=== PATIENT | female | born 1940 | race Asian ===

== ENCOUNTER 2018-03-19 08:04 | Observation (INO) | payer MEDICARE, MEDICAID ==
[~2018-03-19] VITALS: Ht 149.9 cm; Wt 59.2 kg
[2018-03-19 08:36] LABS: BASOPHILS # (AUTO) 0.02 x10^3/uL (0-0.1); BASOPHILS % (AUTO) 1 % (0-1); EOSINOPHILS # (AUTO) 0.15 x10^3/uL (0-0.4); EOSINOPHILS % (AUTO) 3 % (1-7); LYMPHOCYTES # (AUTO) 0.87 x10^3/uL (1-3.4); LYMPHOCYTES % (AUTO) 18 % (22-44); MD NO; MEAN CORPUSCULAR HEMOGLOBIN 29.5 pg (27.0-34.8); MEAN CORPUSCULAR HGB CONC 32.9 g/dL (32.4-35.8); MEAN CORPUSCULAR VOLUME 89.7 fL (80-100); MONOCYTES # (AUTO) 0.61 x10^3/uL (0.2-0.8); MONOCYTES % (AUTO) 13 % (2-9); NEUTROPHILS # (AUTO) 3.15 x10^3/uL (1.8-6.8); NEUTROPHILS % (AUTO) 66 % (42-75); PLATELET COUNT 187 x10^3/uL (130-400); RED BLOOD COUNT 4.64 x10^6/uL (3.82-5.3); RED CELL DISTRIBUTION WIDTH 15.4 % (9.6-15.2)
[2018-03-19 08:47] LABS: ALANINE AMINOTRANSFERASE 19 U/L (12-78); ALBUMIN 3.7 g/dL (3.4-5.0); ANION GAP 7 mmol/L (5-15); CALCIUM 8.7 mg/dL (8.5-10.1); CHLORIDE 110 mmol/L (98-107); CREATININE 0.96 mg/dL (0.55-1.02)
[2018-03-19 08:52] LABS: ALKALINE PHOSPHATASE 77 U/L (45-117); BILIRUBIN,TOTAL 0.4 mg/dL (0.2-1.0); TOTAL PROTEIN 7.2 g/dL (6.4-8.2); TROPONIN I < 0.015 ng/mL (0.000-0.045)
[2018-03-19] MEDS ORDERED: CEFTRIAXONE PMX 1GM/50ML 50 ML IVPB ONE (09:00)
[2018-03-19] MEDS ORDERED: AZITHROMYCIN 500 MG in SODIUM CHLORIDE 0.9% 250 ML IVPB ONE (09:00)
[2018-03-19] MEDS ORDERED: SODIUM CHLORIDE FLUSH 10ML SYR IVF PRN (09:30)
[2018-03-19] MEDS ORDERED: hydrALAzine 20 MG/ML, 1ML ONE (09:38)
[2018-03-19] MEDS ORDERED: CEFTRIAXONE PMX 1GM/50ML 50 ML ONE (09:38)
[2018-03-19] MEDS ORDERED: ONDANSETRON ODT 4 MG PO PRN (10:00)
[2018-03-19] MEDS ORDERED: BENZONATATE 100 MG CAPSULE PO PRN (10:00)
[2018-03-19] MEDS ORDERED: ACETAMINOPHEN 325 MG TABLET PO PRN (10:00)
[2018-03-19] MEDS ORDERED: hydrALAzine 20 MG/ML, 1ML IV ONE (10:00)
[2018-03-19] MEDS ORDERED: hydrALAzine 20 MG/ML, 1ML IV PRN (10:30)
[2018-03-19 10:45] VITALS: BP 182/72
[2018-03-19] MEDS ORDERED: CALC-192 PO (10:52)
[2018-03-19] MEDS ORDERED: MAGN400T36 PO (10:52)
[2018-03-19] MEDS ORDERED: FLUT1AER IH (10:52)
[2018-03-19] MEDS ORDERED: methylPREDNISolone 4mg DOSE PACK PO ONE (11:00)
[2018-03-19] MEDS ORDERED: HYDRALAZINE MC SCH (11:00)
[2018-03-19] MEDS: ENOXAPARIN 40 MG/0.4 ML SQ SCH (12:02)
[2018-03-19] MEDS: GUAIFENESIN ER 600 MG TABLET PO SCH ×2 (12:02→20:46)
[2018-03-19] MEDS: DOXYCYCLINE 100 MG in DEXTROSE 5% 250 ML IV SCH ×2 (12:02→22:22)
[2018-03-19] MEDS: SODIUM CHLORIDE 0.9% 1,000 ML IV SCH (12:03)
[2018-03-19 15:55] VITALS: BP 183/89
[2018-03-19] MEDS: hydrALAzine 20 MG/ML, 1ML IV PRN ×2 (16:09→20:45)
[2018-03-19 16:40] LABS: RAPID INFLUENZA A Negative (Negative); RAPID INFLUENZA B Negative (Negative)
[2018-03-19 17:30] VITALS: BP 165/81
[2018-03-19 20:20] VITALS: BP 185/81
[2018-03-19 23:47] VITALS: BP 164/78
[2018-03-20 03:10] VITALS: BP 163/75
[2018-03-20] MEDS: GUAIFENESIN/DM 200-20MG, 10ML UDC PO PRN ×2 (03:18→14:21)
[2018-03-20] MEDS: SODIUM CHLORIDE 0.9% 1,000 ML IV SCH (03:18)
[2018-03-20 04:45] LABS: BASOPHILS # (AUTO) 0.02 x10^3/uL (0-0.1); BASOPHILS % (AUTO) 0 % (0-1); EOSINOPHILS % (AUTO) 0 % (1-7); LYMPHOCYTES # (AUTO) 1.19 x10^3/uL (1-3.4); LYMPHOCYTES % (AUTO) 20 % (22-44); MD NO; MEAN CORPUSCULAR HEMOGLOBIN 29.1 pg (27.0-34.8); MEAN CORPUSCULAR VOLUME 90.9 fL (80-100); MEAN PLATELET VOLUME 9.4 fL (7.4-10.4); MONOCYTES % (AUTO) 12 % (2-9); NEUTROPHILS # (AUTO) 3.96 x10^3/uL (1.8-6.8); NEUTROPHILS % (AUTO) 67 % (42-75); PLATELET COUNT 199 x10^3/uL (130-400); RED BLOOD COUNT 4.23 x10^6/uL (3.82-5.3); RED CELL DISTRIBUTION WIDTH 15.9 % (9.6-15.2)
[2018-03-20 04:50] LABS: ANION GAP 7 mmol/L (5-15); CALCIUM 8.7 mg/dL (8.5-10.1); CHLORIDE 111 mmol/L (98-107)
[2018-03-20 04:55] LABS: ALANINE AMINOTRANSFERASE 17 U/L (12-78); ALKALINE PHOSPHATASE 69 U/L (45-117); BILIRUBIN,TOTAL 0.2 mg/dL (0.2-1.0); CREATININE 0.73 mg/dL (0.55-1.02); TOTAL PROTEIN 6.1 g/dL (6.4-8.2)
[2018-03-20 06:56] VITALS: BP 184/83
[2018-03-20] MEDS: hydrALAzine 20 MG/ML, 1ML IV PRN (07:48)
[2018-03-20] MEDS: GUAIFENESIN ER 600 MG TABLET PO SCH (07:48)
[2018-03-20] MEDS ORDERED: LISINOPRIL 10 MG TABLET PO SCH (09:00)
[2018-03-20] MEDS: ENOXAPARIN 40 MG/0.4 ML SQ SCH (09:24)
[2018-03-20 09:25] VITALS: BP_SYST 156; BP_SYST 165; BP_DIAS 69
[2018-03-20 09:33] VITALS: BP 161/82
[2018-03-20] MEDS ORDERED: CEFTRIAXONE PMX 1GM/50ML 50 ML IV SCH (10:00)
[2018-03-20] MEDS: DOXYCYCLINE 100 MG in DEXTROSE 5% 250 ML IV SCH (11:17)
[2018-03-20 13:17] VITALS: BP 168/73
[2018-03-20] MEDS ORDERED: DOXY-228 PO (14:17)
[2018-03-20] MEDS ORDERED: LISI-167 PO (14:17)
[2018-03-20] MEDS ORDERED: METH4TAB2 PO (14:17)
[2018-03-20] MEDS ORDERED: CEFD300C37 PO (14:17)
[2018-03-20] MEDS ORDERED: ASPI81TA45 PO (15:21)
== END 2018-03-20 18:15 | disposition home or self-care (01) ==
LOC: ED 09:10 → INTOOBSV 09:30 → EDIP 09:30 → 3NW 10:32
PROVIDERS: ADMIT Hospitalist; ATTEND Hospitalist
DX: J15.9 Unspecified bacterial pneumonia (principal); R42 Dizziness and giddiness; J45.909 Unspecified asthma, uncomplicated; R06.00 Dyspnea, unspecified; I10 Essential (primary) hypertension; K44.9 Diaphragmatic hernia without obstruction or gangrene; Z82.49 Family history of ischemic heart disease and other diseases of the circulatory system; Z96.651 Presence of right artificial knee joint
CPT/HCPCS: 36415; 70450; 71045; 80053; 83605; 83880; 84145; 84443; 84484; 85025; 87040; 87400; 93005; 93306; 96361; 96365; 96366; 96367; 96372; 96375; 96376; 99284; G0378; J0360; J0456; J0696; J1650; J7030; J7050; J7060; J7509; 96368

== ENCOUNTER 2018-03-25 07:16 | Emergency (ER) | payer MEDICARE, MEDICAID ==
[~2018-03-25] VITALS: Ht 152.4 cm; Wt 58.6 kg
[~2018-03-25 07:16] MED LIST: ASPI81TA45 PO; CALC-192 PO; CEFD300C37 PO; DOXY-228 PO; FLUT1AER IH; LISI-167 PO; MAGN400T36 PO; METH4TAB2 PO
[2018-03-25] MEDS ORDERED: ALBUTEROL/IPRATROPIUM 2.5MG/0.5MG, 3 ML ONE (07:50)
--- NOTE | 2018-03-25 07:51 | NUR ---
PT PRESENTED TO ED WITH COUGH. PT WAS DIAGNOSED WITH PNEUMONIA A WEEK AGO AND STATES THAT SHE IS STILL NOT FEELING WELL. PT A&OX4. PT PLACED IN ROOM AND PLACED ON BP AND CONT. PULSE OXIMETER. ASSESSMENT COMPLETED. CALL LIGHT IN REACH. AWAITING MD.
[2018-03-25] MEDS ORDERED: ALBUTEROL/IPRATROPIUM 2.5MG/0.5MG, 3 ML NPPB ONE (08:00)
[2018-03-25] MEDS ORDERED: SODIUM CHLORIDE FLUSH 10ML SYR IVF ONE (08:00)
--- NOTE | 2018-03-25 08:10 | NUR ---
EKG DONE AND PRESENTED TO
[2018-03-25 08:25] LABS: BASOPHILS # (AUTO) 0.04 x10^3/uL (0-0.1); BASOPHILS % (AUTO) 1 % (0-1); EOSINOPHILS # (AUTO) 0.07 x10^3/uL (0-0.4); EOSINOPHILS % (AUTO) 1 % (1-7); LYMPHOCYTES # (AUTO) 1.27 x10^3/uL (1-3.4); LYMPHOCYTES % (AUTO) 20 % (22-44); MD NO; MEAN CORPUSCULAR HEMOGLOBIN 29.1 pg (27.0-34.8); MEAN CORPUSCULAR HGB CONC 32.1 g/dL (32.4-35.8); MEAN CORPUSCULAR VOLUME 90.8 fL (80-100); MEAN PLATELET VOLUME 8.5 fL (7.4-10.4); MONOCYTES # (AUTO) 0.62 x10^3/uL (0.2-0.8); MONOCYTES % (AUTO) 10 % (2-9); NEUTROPHILS # (AUTO) 4.39 x10^3/uL (1.8-6.8); NEUTROPHILS % (AUTO) 69 % (42-75); PLATELET COUNT 245 x10^3/uL (130-400); RED BLOOD COUNT 4.51 x10^6/uL (3.82-5.3); RED CELL DISTRIBUTION WIDTH 15.3 % (9.6-15.2)
[2018-03-25 08:35] LABS: ALBUMIN 3.5 g/dL (3.4-5.0); ANION GAP 6 mmol/L (5-15); CALCIUM 8.9 mg/dL (8.5-10.1); CHLORIDE 111 mmol/L (98-107); CREATININE 0.88 mg/dL (0.55-1.02); PROTHROMBIN TIME 10.6 Seconds (9.6-11.5)
[2018-03-25 08:39] LABS: TROPONIN I < 0.015 ng/mL (0.000-0.045)
--- NOTE | 2018-03-25 08:43 | NUR ---
MELL [phone] SON IN LAW
--- NOTE | 2018-03-25 08:44 | NUR ---
PT ASSISTED TO BR WITH SBA.
--- NOTE | 2018-03-25 09:39 | NUR ---
CALLED AND SPOKE WITH SON IN LAW AND PT WILL BE DISCHARGED. FAMILY MEMBER TO COME CLIPPING MARKER PATIENT
[2018-03-25 09:56] VITALS: BP 161/89
== END 2018-03-25 09:58 | disposition home or self-care (01) ==
LOC: ED 07:48
DX: J45.30 Mild persistent asthma, uncomplicated (principal); R06.00 Dyspnea, unspecified; I10 Essential (primary) hypertension
CPT/HCPCS: 36415; 71046; 80048; 82040; 83880; 84484; 85025; 85610; 85730; 87040; 93005; 99284

== ENCOUNTER 2018-05-10 21:43 | Inpatient (IN) | payer MEDICARE, MEDICAID ==
[~2018-05-10] VITALS: Ht 149.9 cm; Wt 58.9 kg
[2018-05-10] MEDS ORDERED: ASPIRIN 81 MG TABLET CHEW PO ONE (22:00)
[2018-05-10] MEDS ORDERED: ASPIRIN 81 MG TABLET CHEW ONE (22:12)
--- NOTE | 2018-05-10 22:45 | NUR ---
PT HERE FOR CHEST PAIN WITH DIAPHORISIS THAT STARTED THIS AFTERNOON. PT SAYS SHE HAS HAD SWEATS FOR APPROX 1 YEAR. PT HAS HX OF HTN. VSS. PT MEDICATED WITH ASPRIN. DAUGHTER AT BEDSIDE. CALL LIGHT IN REACH
[2018-05-10 22:46] LABS: BASOPHILS # (AUTO) 0.02 x10^3/uL (0-0.1); BASOPHILS % (AUTO) 0 % (0-1); EOSINOPHILS # (AUTO) 0.12 x10^3/uL (0-0.4); EOSINOPHILS % (AUTO) 2 % (1-7); LYMPHOCYTES # (AUTO) 1.34 x10^3/uL (1-3.4); LYMPHOCYTES % (AUTO) 23 % (22-44); MD NO; MEAN CORPUSCULAR HEMOGLOBIN 29.7 pg (27.0-34.8); MEAN CORPUSCULAR HGB CONC 32.5 g/dL (32.4-35.8); MEAN CORPUSCULAR VOLUME 91.2 fL (80-100); MEAN PLATELET VOLUME 8.6 fL (7.4-10.4); MONOCYTES # (AUTO) 0.51 x10^3/uL (0.2-0.8); MONOCYTES % (AUTO) 9 % (2-9); NEUTROPHILS % (AUTO) 66 % (42-75); PLATELET COUNT 241 x10^3/uL (130-400); RED BLOOD COUNT 4.03 x10^6/uL (3.82-5.3); RED CELL DISTRIBUTION WIDTH 14.9 % (9.6-15.2)
[2018-05-10 23:02] LABS: ALBUMIN 3.5 g/dL (3.4-5.0); ANION GAP 6 mmol/L (5-15); CALCIUM 8.8 mg/dL (8.5-10.1); CHLORIDE 113 mmol/L (98-107)
[2018-05-10 23:08] LABS: ALANINE AMINOTRANSFERASE 18 U/L (12-78); ALKALINE PHOSPHATASE 74 U/L (45-117); BILIRUBIN,TOTAL 0.3 mg/dL (0.2-1.0); CREATININE 1.05 mg/dL (0.55-1.02); TOTAL PROTEIN 6.5 g/dL (6.4-8.2); TROPONIN I < 0.015 ng/mL (0.000-0.045)
--- NOTE | 2018-05-10 23:45 | NUR ---
PT TO BE ADMITTED. TECH AT BEDSIDE TO PLACE PIV
--- NOTE | 2018-05-10 23:52 | NUR ---
REPORT TO IVA MARIE.
--- NOTE | 2018-05-10 23:55 | NUR ---
PT MOVED TO ROOM 16. REPORT RECEIVED FROM FRANK ORTIZ
--- NOTE | 2018-05-11 00:07 | NUR ---
PT PLACED ON HOSPITAL BED. VITALS STABLE. DAUGHTER AT BEDSIDE. CALL LIGHT WITHIN REACH.
--- NOTE | 2018-05-11 01:21 | NUR ---
PT AMBULATORY TO RESTROOM STEADY GAIT NOTED. C/O COUGH. DR. ESPAÑA AWARE.
[2018-05-11] MEDS ORDERED: BENZONATATE 100 MG CAPSULE ONE (01:25)
[2018-05-11] MEDS ORDERED: POLYETHYLENE GLYCOL 17 GM PACKET PO PRN (02:00)
[2018-05-11] MEDS ORDERED: PROMETHAZINE 25 MG/ML, 1ML IM PRN (02:00)
[2018-05-11] MEDS ORDERED: OXYcodone IR 5MG TABLET PO PRN (02:00)
[2018-05-11] MEDS ORDERED: DOCUSATE 100 MG CAPSULE PO PRN (02:00)
[2018-05-11] MEDS ORDERED: ACETAMINOPHEN 325 MG TABLET PO PRN (02:00)
[2018-05-11] MEDS ORDERED: hydrALAzine 20 MG/ML, 1ML IVPush PRN (02:00)
[2018-05-11] MEDS ORDERED: ONDANSETRON ODT 4 MG PO PRN (02:00)
[2018-05-11] MEDS ORDERED: ENALAPRILAT 1.25 MG/ML, 2ML IVPush PRN (02:00)
[2018-05-11] MEDS ORDERED: morphine SULFATE 10 MG/ML, 1ML IVPush PRN (02:00)
[2018-05-11] MEDS ORDERED: NITROGLYCERIN 0.4 MG BOTTLE (25 TABS) SL PRN (02:00)
[2018-05-11] MEDS ORDERED: ONDANSETRON 2MG/ML, 2ML IVPush PRN (02:00)
[2018-05-11] MEDS ORDERED: ALBUTEROL/IPRATROPIUM 2.5MG/0.5MG, 3 ML NPPB PRN (02:00)
[2018-05-11] MEDS ORDERED: BISACODYL 10 MG SUPP PR PRN (02:00)
[2018-05-11] MEDS ORDERED: PANTOPRAZOLE 40 MG IV ONE ×2 (02:39→05:58)
[2018-05-11] MEDS ORDERED: HEPARIN 5,000 UNITS/ML, 1ML ONE ×2 (02:39→05:57)
[2018-05-11 02:44] LABS: FREE T4 (FREE THYROXINE) 0.99 ng/dL (0.76-1.46); TROPONIN I < 0.015 ng/mL (0.000-0.045)
--- NOTE | 2018-05-11 02:58 | NUR ---
PT AMBULATORY TO RESTROOM WITH STEADY GAIT. BACK TO BED WITHOUT DIFFICULTY.
[2018-05-11 03:07] LABS: HEMOGLOBIN A1C 5.7 % (4.2-6.3)
--- NOTE | 2018-05-11 03:26 | NUR ---
REPORT TO FRANK MUSA
[2018-05-11 05:05] LABS: BASOPHILS # (AUTO) 0.03 x10^3/uL (0-0.1); BASOPHILS % (AUTO) 1 % (0-1); EOSINOPHILS # (AUTO) 0.15 x10^3/uL (0-0.4); EOSINOPHILS % (AUTO) 3 % (1-7); LYMPHOCYTES # (AUTO) 1.15 x10^3/uL (1-3.4); LYMPHOCYTES % (AUTO) 21 % (22-44); MD NO; MEAN CORPUSCULAR HGB CONC 32.1 g/dL (32.4-35.8); MEAN CORPUSCULAR VOLUME 90.4 fL (80-100); MEAN PLATELET VOLUME 8.4 fL (7.4-10.4); MONOCYTES % (AUTO) 9 % (2-9); NEUTROPHILS # (AUTO) 3.57 x10^3/uL (1.8-6.8); NEUTROPHILS % (AUTO) 66 % (42-75); PLATELET COUNT 235 x10^3/uL (130-400); RED BLOOD COUNT 4.05 x10^6/uL (3.82-5.3); RED CELL DISTRIBUTION WIDTH 14.9 % (9.6-15.2)
[2018-05-11 05:17] LABS: ALBUMIN 3.3 g/dL (3.4-5.0); ANION GAP 7 mmol/L (5-15); CALCIUM 8.5 mg/dL (8.5-10.1); CHLORIDE 110 mmol/L (98-107)
[2018-05-11 05:21] LABS: ALANINE AMINOTRANSFERASE 19 U/L (12-78); ALKALINE PHOSPHATASE 71 U/L (45-117); BILIRUBIN,TOTAL 0.4 mg/dL (0.2-1.0); CHOL/HDL RATIO 2.7; CHOLESTEROL, TOTAL 211 mg/dL (140-239); CREATININE 0.84 mg/dL (0.55-1.02); HDL CHOL % 37 % (28-40); HDL CHOLESTEROL (DIRECT) 79 mg/dL (40-60); LDL CHOLESTEROL,CALCULATED 109 mg/dL (54-169); LDL/HDL RATIO 1.4 (0.5-3.0); TOTAL PROTEIN 6.1 g/dL (6.4-8.2); TRIGLYCERIDES 113 mg/dL (50-200); VLDL CHOLESTEROL 23 mg/dL (0-25)
[2018-05-11] MEDS: SODIUM CHLORIDE 0.9% 1,000 ML IV SCH ×2 (05:43→11:56)
[2018-05-11] MEDS ORDERED: ASPIRIN 325 MG TABLET EC ONE (05:58)
[2018-05-11] MEDS: PANTOPRAZOLE 40 MG IV IVPush SCH ×2 (06:07→18:02)
[2018-05-11] MEDS: ASPIRIN 325 MG TABLET EC PO SCH (06:08)
[2018-05-11] MEDS: HEPARIN 5,000 UNITS/ML, 1ML SQ SCH ×3 (06:08→22:49)
[2018-05-11] MEDS ORDERED: BUDESONIDE 0.5 MG/2 ML INHA ONE (06:31)
[2018-05-11] MEDS: BUDESONIDE 0.5 MG/2 ML INHA NPPB SCH ×2 (06:35→21:00)
[2018-05-11 08:26] VITALS: BP 181/79
[2018-05-11] MEDS ORDERED: LISINOPRIL 10 MG TABLET ONE (08:28)
[2018-05-11] MEDS: LISINOPRIL 10 MG TABLET PO SCH ×2 (08:30→20:07)
[2018-05-11] MEDS ORDERED: ALBUTEROL/IPRATROPIUM 2.5MG/0.5MG, 3 ML NPPB SCH (09:00)
[2018-05-11] MEDS ORDERED: FLUTICASONE/VILANTEROL 100-25MCG/INH INH SCH (09:00)
[2018-05-11 09:23] LABS: TROPONIN I < 0.015 ng/mL (0.000-0.045)
[2018-05-11 11:44] VITALS: BP 171/87
[2018-05-11 12:05] VITALS: BP 156/80
[2018-05-11] MEDS ORDERED: REGADENOSON 0.4 MG/5 ML SYRINGE ONE (12:52)
[2018-05-11] MEDS ORDERED: CALCIUM CARBONATE 500 MG TAB.CHEW PO PRN (17:30)
[2018-05-11] MEDS ORDERED: MAALOX/HYOSCYAMINE/LIDOCAINE 45 ML BTL PO PRN (17:30)
[2018-05-11 19:20] VITALS: BP 187/77
[2018-05-11] MEDS: AMLODIPINE 5 MG TABLET PO SCH (20:07)
[2018-05-11 21:30] VITALS: BP 126/68
[2018-05-12 01:31] VITALS: BP 151/79
[2018-05-12] MEDS: PANTOPRAZOLE 40 MG IV IVPush SCH (05:25)
[2018-05-12] MEDS: HEPARIN 5,000 UNITS/ML, 1ML SQ SCH ×2 (05:26→14:00)
[2018-05-12] MEDS: ASPIRIN 325 MG TABLET EC PO SCH (05:26)
[2018-05-12 06:55] VITALS: BP 148/78
[2018-05-12] MEDS: BUDESONIDE 0.5 MG/2 ML INHA NPPB SCH (07:42)
[2018-05-12] MEDS: LISINOPRIL 10 MG TABLET PO SCH (10:42)
[2018-05-12] MEDS: AMLODIPINE 5 MG TABLET PO SCH (10:42)
[2018-05-12] MEDS ORDERED: ALBU18HF INH (12:23)
[2018-05-12] MEDS ORDERED: AMLO-150 PO (12:23)
[2018-05-12] MEDS ORDERED: CALC200T24 PO (12:23)
[2018-05-12] MEDS ORDERED: OMEP-110 PO (12:23)
[2018-05-12 12:24] VITALS: BP 144/70
== END 2018-05-12 18:47 | disposition home or self-care (01) | DRG 303 ==
LOC: ED 23:27 → OBSVTOIN 23:28 → EDIP 23:28 → 5SO 05-11 11:20
PROVIDERS: ADMIT Internal Medicine; ATTEND Internal Medicine
DX: I25.10 Atherosclerotic heart disease of native coronary artery without angina pectoris (principal); Z82.49 Family history of ischemic heart disease and other diseases of the circulatory system; I10 Essential (primary) hypertension; K44.9 Diaphragmatic hernia without obstruction or gangrene; K21.9 Gastro-esophageal reflux disease without esophagitis; Z96.651 Presence of right artificial knee joint; R00.2 Palpitations; J45.909 Unspecified asthma, uncomplicated
CPT/HCPCS: 36415; 71045; 78452; 80053; 80061; 83036; 83735; 83880; 84439; 84443; 84484; 85025; 93005; 93017; 93306; 94640; 99285; G0378; J1644; J2785; J7620; J7626; A9502; C9113; C9898; J7030

== ENCOUNTER 2019-04-14 22:43 | Emergency (ER) | payer MEDICARE, MEDICAID ==
[~2019-04-14] VITALS: Ht 149.9 cm; Wt 61.9 kg
[~2019-04-14 22:43] MED LIST changes: +ALBU18HF INH; +AMLO-150 PO; +CALC200T24 PO; +OMEP-110 PO
--- NOTE | 2019-04-14 23:18 | NUR ---
Monitors applied, pt c/o chest pain that began "few" hours ago, pain 4/10. Pt's grandson at bedside, side rails up, call light within reach.
[2019-04-14 23:28] LABS: ALANINE AMINOTRANSFERASE 23 U/L (12-78); ALBUMIN 3.6 g/dL (3.4-5.0); CALCIUM 8.8 mg/dL (8.5-10.1); CREATININE 1.36 mg/dL (0.55-1.02)
[2019-04-14 23:29] LABS: MEAN CORPUSCULAR HEMOGLOBIN 27.4 pg (27.0-34.8); MEAN CORPUSCULAR HGB CONC 31.4 g/dL (32.4-35.8); MEAN CORPUSCULAR VOLUME 87.2 fL (80-100); MEAN PLATELET VOLUME 9.3 fL (7.4-10.4); PLATELET COUNT 257 x10^3/uL (130-400); RED BLOOD COUNT 4.87 x10^6/uL (3.82-5.3); RED CELL DISTRIBUTION WIDTH 23.1 % (9.6-15.2)
[2019-04-14 23:30] LABS: MD YES
[2019-04-14 23:32] LABS: ALKALINE PHOSPHATASE 104 U/L (45-117); BILIRUBIN,TOTAL 0.3 mg/dL (0.2-1.0); TOTAL PROTEIN 7.4 g/dL (6.4-8.2); TROPONIN I < 0.015 ng/mL (0.000-0.045)
[2019-04-14 23:33] LABS: ANISOCYTOSIS 1+; BAND#(MANUAL) 0.23 x10^3/uL; BANDS%(MANUAL) 3 % (0-7); LYMPH#(MANUAL) 1.56 x10^3/uL (1-3.4); LYMPHS% (MANUAL) 20 % (22-44); MICROCYTOSIS 1+; MONOS#(MANUAL) 0.55 x10^3/uL (0.3-2.7); MONOS% (MANUAL) 7 % (2-9); OVALOCYTES 1+; SEG#(MANUAL) 5.46 x10^3/uL (1.8-6.8); SEGS% (MANUAL) 70 % (42-75)
[2019-04-14 23:34] LABS: <PLATELET ESTIMATE> ADEQUATE; <PLT MORPHOLOGY> NORMAL PLT MORPH
[2019-04-14 23:37] LABS: ANION GAP 8 mmol/L (5-15); CHLORIDE 112 mmol/L (98-107)
--- NOTE | 2019-04-14 23:40 | NUR ---
Pt to CT.
[2019-04-14] MEDS ORDERED: OMNIPAQUE 350 MG/ML, 100ML BOTTLE ONE (23:45)
--- NOTE | 2019-04-14 23:55 | NUR ---
Pt back from CT, sitting up in [facility], call light at reach, family at bedside.
[2019-04-15 01:02] VITALS: BP 132/74
== END 2019-04-15 01:05 | disposition home or self-care (01) ==
LOC: ED 23:31
DX: R07.89 Other chest pain (principal); I10 Essential (primary) hypertension; K44.9 Diaphragmatic hernia without obstruction or gangrene; J45.909 Unspecified asthma, uncomplicated; R06.02 Shortness of breath; Z87.01 Personal history of pneumonia (recurrent)
CPT/HCPCS: 36415; 71045; 71275; 80053; 83880; 84484; 85025; 85379; 93005; 99284; Q9967; 99283